=== PATIENT | male | born 1970 | race Caucasian/White ===

== ENCOUNTER 2021-10-03 12:09 | Day surgery (SDC) | payer OTHER ==
[~2021-10-03] VITALS: Ht 175.3 cm; Wt 84.3 kg
[~2021-10-03 12:09] MED LIST: FLONASE ALLERG9.9 ML
--- NOTE | 2021-10-03 13:56 | NUR ---
10/03/21 [id number] Rebecca Jones SIMETHICONE USED DURING PROCEDURE.
== END 2021-10-03 14:35 | disposition home or self-care (01) ==
LOC: ORSCSDS 12:09
PROVIDERS: Student in an Organized Health Care Education/Training Program
PROC: 0DBN8ZX Excision of Sigmoid Colon, Via Natural or Artificial Opening Endoscopic, Diagnostic (ICD-10-PCS; principal; 2021-10-03 14:00)
PROC: 0DBK8ZX Excision of Ascending Colon, Via Natural or Artificial Opening Endoscopic, Diagnostic (ICD-10-PCS; principal; 2021-10-03 14:00)
PROC: 0DBL8ZX Excision of Transverse Colon, Via Natural or Artificial Opening Endoscopic, Diagnostic (ICD-10-PCS; principal; 2021-10-03 14:00)
DX: Z12.11 Encounter for screening for malignant neoplasm of colon (principal); D12.3 Benign neoplasm of transverse colon; D12.2 Benign neoplasm of ascending colon; D12.5 Benign neoplasm of sigmoid colon; Z87.891 Personal history of nicotine dependence
CPT/HCPCS: 88305; J0461; J2405; J2704; J7120